=== PATIENT | male | born 1980 | race Caucasian/White ===

== ENCOUNTER 2017-12-13 07:05 | Day surgery (SDC) | payer BC ==
[2017-12-11 09:40] VITALS: BMI 26.1
[2017-12-13] MEDS ORDERED: CEFAZOLIN/Water 2 GM/20 ML SYRINGE ONE (07:14)
[2017-12-13] MEDS ORDERED: Midazolam HCl 2 mg/2 ml Vial ONE (08:12)
[2017-12-13] MEDS ORDERED: Fentanyl 100 MCG/2 ML VIAL ONE (08:12)
[2017-12-13] MEDS ORDERED: Zolpidem Tartrate 5 MG TAB PO PRN (08:52)
[2017-12-13] MEDS ORDERED: Promethazine HCl 25 MG/ML VIAL IM PRN (08:52)
[2017-12-13] MEDS ORDERED: Fentanyl 100 MCG/2 ML VIAL IV PRN (08:52)
[2017-12-13] MEDS ORDERED: traMADol HCl 50 MG TAB PO PRN ×2 (08:52)
[2017-12-13] MEDS ORDERED: Ondansetron HCl/PF 4 MG/2 ML Vial IVP PRN (08:52)
[2017-12-13] MEDS ORDERED: Ropivacaine 0.2% 550 ML 550 ML NERVE BLCK SCH (08:52)
[2017-12-13] MEDS ORDERED: HYDROcodone/Acetaminophen 10/325 mg Tablet PO PRN ×2 (08:52)
[2017-12-13] MEDS ORDERED: Ketorolac Tromethamine 30 MG/ML VIAL IVP PRN (08:52)
--- NOTE | 2017-12-13 11:37 | OP ---
DATE OF PROCEDURE: 12/13/2017 PREOPERATIVE DIAGNOSES: Acromioclavicular joint arthritis and impingement syndrome, right shoulder. POSTOPERATIVE DIAGNOSES: Acromioclavicular joint arthritis and impingement syndrome, right shoulder. SURGEON: Redd Arita M.D. ANESTHESIA: General. BLOOD LOSS: Minimal. SPECIMEN: None. DRAINS: None. COMPLICATIONS: None. TITLE OF PROCEDURE: Right shoulder arthroscopic subacromial decompression and distal clavicle resect ion. PROCEDURE IN DETAIL: The patient was placed in the left lateral decubitus position. Right arm was p laced in 15 pounds traction. Scope was placed in the subacromial bursa. I did not enter the joint b ecause the MRI showed the joint to be completely normal. I did not want to damage the cuff anyway. He had very tight subacromial space and a lot of bursitis. A bursectomy was performed. CA ligament was taken down. Anterior and inferior acromioplasty was performed with an 8 mm enrique. About 8 mm of distal clavicle was resected using an 8 mm enrique as well. I did leave the dorsal acromioclavicular li gaments for stability. Hemostasis obtained. The shoulder was irrigated and drained. Portals closed with nylon suture. Sterile dressings applied.
[2017-12-13] MEDS ORDERED: Ropivacaine 0.5% HCl/PF (150 MG/30 ML VIAL) ONE (13:03)
[2017-12-13] MEDS ORDERED: Ropivacaine 0.2% HCl/PF (40 MG/20 ML VIAL) ONE (13:03)
[2017-12-13] MEDS ORDERED: Lidocaine 1% PF 5 ML VIAL ONE (14:25)
[2017-12-13] MEDS ORDERED: PROPOFOL 200 MG/20 ML VIAL ONE (14:25)
== END 2017-12-13 12:47 | disposition home or self-care (01) ==
LOC: SDC 07:05
PROVIDERS: ATTEND Orthopaedic Surgery
PROC: 0RNJ4ZZ Release Right Shoulder Joint, Percutaneous Endoscopic Approach (ICD-10-PCS; principal; 2017-12-13)
PROC: 0PB94ZZ Excision of Right Clavicle, Percutaneous Endoscopic Approach (ICD-10-PCS; principal; 2017-12-13)
DX: M19.011 Primary osteoarthritis, right shoulder (principal); M75.41 Impingement syndrome of right shoulder; M89.511 Osteolysis, right shoulder; Z87.891 Personal history of nicotine dependence
CPT/HCPCS: A4306; G8984-GP-CK; G8985-GP-CK; G8986-GP-CK; J2001; J2250; J2704; J2795; J3010